=== PATIENT | male | born 1960 | race Caucasian/White ===

== ENCOUNTER 2023-04-05 06:55 | Day surgery (SDC) | payer MEDICARE, OTHER ==
[2023-04-02 09:11] VITALS: BP 124/80
[~2023-04-05] VITALS: Ht 160 cm; Wt 72.7 kg
[~2023-04-05 06:55] MED LIST: ANECREAM515 GM; DERMACINRX LID1 EACH TD; HYDROXYZINE HCL10 MG PO; LISINOPRIL10 MG PO; METHOCARBAMOL750 MG PO; NUCYNTA50 MG PO
[2023-04-05 07:18] VITALS: BP 118/79
--- NOTE | 2023-04-05 07:19 | NUR ---
8/10 BILATERAL GROIN PAIN HAS NERVE STIMULATOR.
--- NOTE | 2023-04-05 07:35 | NUR ---
DS ROUNDS. PT AND EXPRESSED COMFORT WITH PROCEDURE; SOME ANXIETY AROUND IV START. NORMALIZED PT EXPERIENCE. PROVIDED SUPPORTIVE PRESENCE. PT DECLINED PRAYER IN ROOM. PROVIDED SILENT PRAYER.
--- NOTE | 2023-04-05 08:52 | NUR ---
04/05/23 0852 Elida Garcia 2557 PT ARRIVED TO PACU ON 2L VIA NC. PT ASLEEP AND RESP EVEN AND UNLABORED.
[2023-04-05 09:18] VITALS: BP 113/82
--- NOTE | 2023-04-05 10:56 | OR ---
[facility] [address], [place] [address] Signed DATE OF OPERATION: 04/05/2023 SURGEON: Aaliyah Powell MD PREOPERATIVE DIAGNOSES: 1. Personal history of colonic polyps in 2008 at age 47. 2. Unremarkable colonoscopy in 2013 at age 52. POSTOPERATIVE DIAGNOSIS: [id number] sigmoid diverticulosis. PROCEDURE: Colonoscopy without biopsy. ESTIMATED BLOOD LOSS: None. INDICATIONS: Rolando is a 62-year-old gentleman asked to see me for a followup colonoscopy. He previously lived in [place]. Around age 47, he had a colonoscopy with respect to some testicular pain. He is pretty certain they took out some polyps. He came back in 2013 at age of 52. He said that was unremarkable. They told him to follow up in 10 years. He is now living in [place], [place] with his . He said he has no lower GI complaints. There is no family history of colon cancer or polyps. In the office I had given Rolando a pamphlet on colonoscopy. We reviewed the nature of the test. There is risk including, but not limited to gas bloating, crampy abdominal pain, bleeding, perforation requiring surgery, and missed diagnosis. We also reviewed written instructions for bowel prep line by line. We went over the need for monitored anesthesia care given his history of chronic pain syndrome and the nerve stimulator in his back along with his need for pain medication and so forth. He had expressed understanding and wished to proceed. PROCEDURE IN DETAIL: Rolando was taken into our endoscopy suite and placed in the left lateral decubitus position. He was given monitored anesthesia care per our nurse reed fixer. A digital rectal exam was performed and this was unremarkable. He had no external hemorrhoids. Good sphincter tone. There were no masses. The adult colonoscope was introduced and advanced all the way around into the cecum under direct visualization of camera without difficulty. His prep was good. We could easily see his appendiceal orifice and ileocecal valve. The scope was then slowly withdrawn. We took several pictures Electronically Signed By: AALIYAH POWELL MD 04/05/23 1056 PATIENT NAME: ROLANDO ELIZONDO OPERATIVE REPORT DATE OF : 58 REPORT #: [id number] PHYSICIAN: AALIYAH POWELL MD PCP: RANCHO MARTINEZ PA-C REPORT IS CONFIDENTIAL AND NOT TO BE RELEASED WITHOUT AUTHORIZATION [address] [address] Signed throughout for photodocumentation. He does have diverticula in the left sigmoid colon. They were moderate in size, few in number and scattered about. There were no polyps. Once in the rectum, the scope was retroflexed and we saw no additional pathology above the anal canal. After this, the gas was suctioned out, colonoscope removed. Rolando tolerated the procedure quite well. RECOMMENDATIONS: Rolando can follow up in 10 years for repeat colonoscopy. Aaliyah Powell MD ALB/TONIAL /[id number] cc: JENELLE Lester MD Copies: AALIYAH POWELL MD ~ Electronically Signed By: AALIYAH POWELL MD 04/05/23 1056 PATIENT NAME: ROLANDO ELIZONDO OPERATIVE REPORT DATE OF : 58 REPORT #: [id number] PHYSICIAN: AALIYAH POWELL MD PCP: RANCHO MARTINEZ PA-C REPORT IS CONFIDENTIAL AND NOT TO BE RELEASED WITHOUT AUTHORIZATION
--- NOTE | 2023-04-05 19:18 | EKG ---
[facility] [address] [facility] [place], [place] [address] Signed Suspect unspecified pacemaker failure Normal sinus rhythm Normal ECG When compared with ECG of 02-APR-2023 10:18, No significant change was found Confirmed by CANDICE GUTIERREZ MD ([id number]) on 04/05/2023 7:18:15 PM Electronically Signed By: CANDICE GUTIERREZ 04/05/231917 PATIENT NAME: ROLANDO ELIZONDO LISA Electrocardiogram DATE OF : 58 PHYSICIAN: CANDICE GUTIERREZ REPORT #: [id number] REPORT IS CONFIDENTIAL AND NOT TO BE RELEASED WITHOUT AUTHORIZATION
== END 2023-04-05 09:30 | disposition home or self-care (01) ==
LOC: OPS 06:55 → DS 06:55 → OPS 08:15 → DS 09:00 → OPS 09:30
PROVIDERS: ATTEND Colon & Rectal Surgery
PROC: 0DJD8ZZ Inspection of Lower Intestinal Tract, Via Natural or Artificial Opening Endoscopic (ICD-10-PCS; principal; 2023-04-05 08:15)
DX: Z12.11 Encounter for screening for malignant neoplasm of colon (principal); K57.30 Diverticulosis of large intestine without perforation or abscess without bleeding; Z86.010 Personal history of colon polyps; K21.9 Gastro-esophageal reflux disease without esophagitis; G89.4 Chronic pain syndrome; I10 Essential (primary) hypertension; G57.82 Other specified mononeuropathies of left lower limb; G90.50 Complex regional pain syndrome I, unspecified; R73.03 Prediabetes; E78.5 Hyperlipidemia, unspecified; L30.1 Dyshidrosis [pompholyx]; N43.3 Hydrocele, unspecified; Z88.5 Allergy status to narcotic agent; Z88.8 Allergy status to other drugs, medicaments and biological substances; Z79.899 Other long term (current) drug therapy
CPT/HCPCS: G0121; 93005; 93010; J2704; J7121